=== PATIENT | female | born 1985 | race Caucasian/White ===

== ENCOUNTER 2017-08-21 20:38 | Emergency (ER) | payer SELFPAY ==
[2017-08-21] MEDS ORDERED: Sodium Chloride 0.9% 1,000 ML IV ONE (21:11)
[2017-08-21 21:25] LABS: BASO % 0.5 % (0.0-2.0); EOS # 0.2 K/uL (0.0-0.7); EOS % 2.8 % (0.0-4.0); LYMPH # 2.4 K/uL (1.0-4.3); LYMPH % 43.7 % (20.0-40.0); MEAN CELL VOLUME 87.4 fL (81.0-99.0); MEAN CORPUSCULAR HEMOGLOBIN 30.3 pg (27.0-31.0); MEAN CORPUSCULAR HGB CONC 34.7 g/dL (33.0-37.0); MEAN PLATELET VOLUME 7.6 fL (7.2-11.7); MONO # 0.6 K/uL (0.0-0.8); MONO % 11.8 % (0.0-10.0); NEUT # 2.2 K/uL (1.8-7.0); NEUT % 41.2 % (50.0-75.0); RBC 3.98 Mil/uL (3.80-5.20); RED CELL DISTRIBUTION WIDTH 13.1 % (11.5-14.5); WHITE BLOOD COUNT 5.4 K/uL (4.8-10.8)
--- NOTE | 2017-08-21 21:26 | C.PDOC ---
History Of Present Illness 32 y/o female presents to the ED with 3 days of nausea, vomiting, and diarrhea. Also complains of throat pain x 1 week. Patient states a nurse from [place] gave her an injection of ampicillin and she has been taking ampicillin 500 BID. Last dose was last night, with no improvement of throat pain. Patient reports the antibiotics are provoking her vomiting and diarrhea. Time Seen by Provider: 08/21/17 20:58 Chief Complaint (Nursing): Abdominal Pain History Per: Patient History/Exam Limitations: no limitations Onset/Duration Of Symptoms: Days Current Symptoms Are (Timing): Still Present Past Medical History Reviewed: Historical Data, Nursing Documentation, Vital Signs Vital Signs: Last Vital Signs Temp 98.3 F 08/21/17 20:50 Pulse 77 08/21/17 20:50 Resp 18 08/21/17 20:50 BP 116/78 08/21/17 20:50 Pulse Ox 99 08/21/17 21:49 - Medical History PMH: No Chronic Diseases Surgical History: No Surg Hx Family History: States: No Known Family Hx - Social History Hx Tobacco Use: No Hx Alcohol Use: No Hx Substance Use: No - Immunization History Hx Tetanus Toxoid Vaccination: No Hx Influenza Vaccination: No Hx Pneumococcal Vaccination: No Review Of Systems Except As Marked, All Systems Reviewed And Found Negative. Constitutional: Negative for: Fever, Chills ENT: Positive for: Throat Pain Gastrointestinal: Positive for: Nausea, Vomiting, Diarrhea Physical Exam - Physical Exam Appears: Non-toxic, No Acute Distress Skin: Warm, Dry Head: Atraumatic, Normacephalic Eye(s): bilateral: Normal Inspection, PERRL, EOMI Nose: Normal Oral Mucosa: Moist Throat: No Erythema, No Exudate, Other (Small tonsils without inflammation) Neck: Normal ROM, Supple Lymphatic: Adenopathy (cervical lymphadenopathy) Cardiovascular: Rhythm Regular, No Murmur Respiratory: Normal Breath Sounds, No Rales, No Rhonchi, No Wheezing Gastrointestinal/Abdominal: Soft, No Tenderness, No Distention Extremity: Bilateral: Atraumatic, Normal Color And Temperature, Normal ROM Neurological/Psych: Oriented x3, Normal Speech ED Course And Treatment - Laboratory Results Result Diagrams: 08/21/17 21:17 08/21/17 21:17 Lab Interpretation: Normal (lft's neg, UA neg.) Urine POC: Negative O2 Sat by Pulse Oximetry: 99 (RA) Pulse Ox Interpretation: Normal - Radiology CXR: Interpreted by Me CXR Interpretation: Yes: No Acute Disease - Other Rad abd x 2 X-Ray: Interpreted by Me (+FOS) Progress Note: protonix, zofran, toradol, IVF Reevaluation Time: 21:47 Reassessment Condition: Improved Medical Decision Making Medical Decision Making: Impression: 32 y/o female with N/V/D after taking antibiotic, and throat pain x 1 week Initial Plan: Ordered labs and x-ray obstructive series. Patient given IV fluids, Zofran, Toradol, and Protonix. NO s/s of throat/tonsil infections, no neck OFELIA. pt's n/v may be related to the Amoxicillin itself vs gastritis of ? etiology ++ constipation improved with ED tx, continue same @ home. Disposition Doctor Will See Patient In The: Office Counseled Patient/Family Regarding: Studies Performed, Diagnosis - Disposition Referrals: [facility] [Outside] Disposition: HOME/ ROUTINE Disposition Time: 21:48 Condition: GOOD Additional Instructions: FERNY de damion Ampicillina- provoca molestia del abdomen SIGUE Pepcid 20 mg en la noche para bajar el acides del estomago (gastritis) Zofran ODT (tableta para la nausea) 1 tableta cada 8 horas kaci necessario para la nausea/vomitos Dieta blanda por 3 hart mas todas las examenes de la any y orina NORMALES. NO HAY INFECCION Sigue en [facility] para hacer shea Instructions: Gastritis, Nausea and Vomiting, Adult (DC) Forms: [employer] (Serbian) Print Language: SLOVAK - Clinical Impression Clinical Impression: Sore throat, Vomiting - Scribe Statement The provider has reviewed the documentation as recorded by the Scribe (Alecia Santo) Provider Attestation: All medical record entries made by the Scribe were at my direction and personally dictated by me. I have reviewed the chart and agree that the record accurately reflects my personal performance of the history, physical exam, medical decision making, and the department course for this patient. I have also personally directed, reviewed, and agree with the discharge instructions and disposition.
[2017-08-21 21:34] LABS: HCG,QUALITATIVE URINE NEGATIVE (NEGATIVE); SQUAMOUS EPITHIAL 7 /hpf (0-5); URINE BILIRUBIN NEGATIVE (NEGATIVE); URINE BLOOD NEGATIVE (NEGATIVE); URINE CLARITY Clear (Clear); URINE COLOR Yellow (YELLOW); URINE GLUCOSE (UA) NORMAL (Normal); URINE LEUKOCYTE ESTERASE NEG Leu/uL (Negative); URINE PROTEIN NEGATIVE (NEGATIVE); URINE UROBILINOGEN NORMAL mg/dL (0.2-1.0)
[2017-08-21 21:40] LABS: ALB/GLOB RATIO 1.2 (1.0-2.1); ALT/SGPT 20 U/L (9-52); AST/SGOT 21 U/L (14-36); BLOOD UREA NITROGEN 14 mg/dL (7-17); CALCIUM 8.5 mg/dl (8.6-10.4); GFR AFRICAN-AMERICAN > 60; GFR NON-AFRICAN AMERICAN > 60; LIPASE 136 U/L (23-300)
[2017-08-21 22:45] VITALS: BP 101/69; PULSE 67; RESP 16; TEMP 98.4; O2SAT 100
--- NOTE | 2017-08-22 09:41 | RAD ---
PROCEDURE: Radiographs of the chest and abdomen (obstructive series) HISTORY: abd pain COMPARISON: No prior. TECHNIQUE: AP radiograph of the chest, with upright and supine radiographs of the abdomen. FINDINGS: CHEST: Lungs: Clear. Cardiovascular: Normal size heart. No pulmonary vascular congestion. Pleura: No pleural fluid. No pneumothorax. Other findings: None. ABDOMEN AND PELVIS: Bowel: Mildly prominent fecal loading is seen throughout various large-bowel segments in the upper abdomen. No evidence of mechanical obstruction. No suspicious intra-abdominal calcifications are identified at this time. Free air: None. Bones: Unremarkable. Other findings: None. IMPRESSION: Unremarkable radiograph of chest. Moderate retained fecal material is seen in the large bowel in the upper abdomen. No evidence of mechanical bowel obstruction.
== END 2017-08-21 22:37 | disposition home or self-care (01) ==
LOC: C.ER 20:38
DX: J02.9 Acute pharyngitis, unspecified (principal); R11.2 Nausea with vomiting, unspecified
CPT/HCPCS: 74022; 80053; 81001; 83690; 84703; 85025; 96361; 96374; 96375; 99284; C9113; J1885; J2405; J7040